=== PATIENT | male | born 1985 | race Caucasian/White ===

== ENCOUNTER 2019-06-29 16:14 | Emergency (ER) | payer OTHER ==
[~2019-06-29] VITALS: Ht 167.6 cm; Wt 102.3 kg
[~2019-06-29 16:14] MED LIST: NO HOME MEDS
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
[2019-06-29 20:31] VITALS: BP 108/74
== END 2019-06-29 21:01 | disposition home or self-care (01) ==
LOC: M ED 16:14
DX: S16.1XXA Strain of muscle, fascia and tendon at neck level, initial encounter (principal); V49.49XA Driver injured in collision with other motor vehicles in traffic accident, initial encounter; Y92.410 Unspecified street and highway as the place of occurrence of the external cause; Z88.1 Allergy status to other antibiotic agents; Z88.2 Allergy status to sulfonamides; F17.210 Nicotine dependence, cigarettes, uncomplicated

== ENCOUNTER 2019-09-13 07:11 | Emergency (ER) | payer OTHER ==
[~2019-09-13] VITALS: Ht 167.6 cm; Wt 102.7 kg
[2019-09-13 07:18] VITALS: BP 128/72
[2019-09-13] MEDS ORDERED: CYCL5TAB PO (07:41)
[2019-09-14] MEDS ORDERED: IBUP-1022 PO (09:41)
== END 2019-09-13 08:23 | disposition home or self-care (01) ==
LOC: EDBD 07:11 → M ED 07:11
DX: Z04.1 Encounter for examination and observation following transport accident (principal); V43.52XA Car driver injured in collision with other type car in traffic accident, initial encounter; Y92.9 Unspecified place or not applicable; Y93.9 Activity, unspecified; Y99.9 Unspecified external cause status; Z88.2 Allergy status to sulfonamides

== ENCOUNTER 2019-09-14 09:09 | Emergency (ER) | payer OTHER ==
[~2019-09-14] VITALS: Ht 167.6 cm; Wt 105.2 kg
[2019-09-14 09:09] VITALS: BP 120/78
[~2019-09-14 09:09] MED LIST changes: +CYCL5TAB PO
[2019-09-14] MEDS ORDERED: IBUP-1022 PO (09:41)
[2019-09-14] MEDS ORDERED: IBUPROFEN 600 MG TAB PO ONE (09:45)
== END 2019-09-14 09:52 | disposition home or self-care (01) ==
LOC: M ED 09:09
DX: S29.012A Strain of muscle and tendon of back wall of thorax, initial encounter (principal); V43.52XA Car driver injured in collision with other type car in traffic accident, initial encounter; Y92.9 Unspecified place or not applicable; Y93.9 Activity, unspecified; Y99.9 Unspecified external cause status; G89.29 Other chronic pain; M54.9 Dorsalgia, unspecified; J45.909 Unspecified asthma, uncomplicated; F17.200 Nicotine dependence, unspecified, uncomplicated; Z88.2 Allergy status to sulfonamides

== ENCOUNTER → 2021-10-09 | Outpatient (CLI) | payer OTHER ==
[~2021-10-09] MED LIST changes: +IBUP-1022 PO
== END ==
LOC: M RAD 09:31
PROVIDERS: ATTEND Pediatrics
DX: N50.819 Testicular pain, unspecified (principal)

== ENCOUNTER → 2023-06-22 | Outpatient (CLI) | payer OTHER ==
[~2023-06-22] MED LIST changes: +ISOVUE-300 61% 100ML VIAL As Ordered ONE; +LIDOCAINE 1% MDV 20ML VIAL As Ordered ONE; +PROHANCE 279.3MG/ML 5ML VIAL As Ordered ONE
== END ==
LOC: M RAD 06:49
PROVIDERS: ATTEND Physician Assistant Surgical
DX: S73.191A Other sprain of right hip, initial encounter (principal); X58.XXXA Exposure to other specified factors, initial encounter; Y92.9 Unspecified place or not applicable
CPT/HCPCS: 27093; 73723; 77002; A9576; Q9967

== ENCOUNTER 2023-12-13 15:45 | Emergency (ER) | payer OTHER, SELFPAY ==
[2023-12-13 15:45] VITALS: BP 143/67; TEMP 98.2; O2SAT 97
[~2023-12-13 15:45] MED LIST changes: -ISOVUE-300 61% 100ML VIAL As Ordered ONE; -LIDOCAINE 1% MDV 20ML VIAL As Ordered ONE; -PROHANCE 279.3MG/ML 5ML VIAL As Ordered ONE
== END 2023-12-13 19:07 | disposition left against medical advice (07) ==
LOC: M ED 15:45
DX: Z53.21 Procedure and treatment not carried out due to patient leaving prior to being seen by health care provider (principal)